=== PATIENT | female | born 1955 ===

== ENCOUNTER 2022-06-08 08:24 | Outpatient (CLI) | payer OTHER | END 2022-06-08 08:26 | disposition home or self-care (01) | LOC: SONOGRAMA 08:24 | PROVIDERS: ATTEND Pathology Anatomic Pathology & Clinical Pathology | DX: E04.1 Nontoxic single thyroid nodule (principal); D34 Benign neoplasm of thyroid gland; E06.3 Autoimmune thyroiditis ==